=== PATIENT | male | born 1930 | race Caucasian/White ===

== ENCOUNTER → 2016-05-18 | Outpatient (CLI) | payer MEDICARE ==
--- NOTE | 2016-05-24 09:21 | RSPPFT ---
DATE OF PROCEDURE: 05/18/16 COMMENTS: VOLUMES DYNAMIC: FVC and FEV1 moderately reduced. STATIC: VTG, RV mildly increased; TLC normal. FLOWS: FEV1% mildly reduced; FEF 25-75 severely reduced. DIFFUSION: Normal. FLOW VOLUME LOOP: Pattern of variable intrathoracic airways obstruction. IMPRESSION: Moderately severe obstructive ventilatory defect with no reduction in diffusion. There is also mild to moderate hyperinflation and some improvement post-bronchodilator.
== END ==
LOC: HRSP 12:54
PROVIDERS: ATTEND Internal Medicine
DX: R06.02 Shortness of breath (principal); R06.00 Dyspnea, unspecified
CPT/HCPCS: 94060; 94620; 94726; 94729